=== PATIENT | female | born 1980 | race Caucasian/White ===

== ENCOUNTER 2018-10-02 00:09 | Emergency (ER) | payer SELFPAY ==
[~2018-10-02] VITALS: Ht 165.1 cm; Wt 52.2 kg
[2018-10-02 00:13] VITALS: BP 127/50
--- NOTE | 2018-10-02 00:17 | NUR ---
PT AMBULATED TO LOBBY WITH VSS.
--- NOTE | 2018-10-02 03:00 | NUR ---
PT AMBULATED TO BED 12 WITH VSS.
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
[2018-10-02] MEDS ORDERED: IBUPROFEN 800 MG TAB PO ONE (03:55)
--- NOTE | 2018-10-02 04:02 | NUR ---
Patient discharged with v/s stable. Written and verbal after care instructions given and explained. Patient alert, oriented and verbalized understanding of instructions. Ambulatory with steady gait. All questions addressed prior to discharge. ID band removed. Patient advised to follow up with PMD. Rx of MOTRIN, ROBAXIN WAS given. Patient educated on indication of medication including possible reaction and side effects. Opportunity to ask questions provided and answered.
--- NOTE | 2018-10-02 04:02 | NUR ---
PT WAS GIVEN A HOMELESS PACKET AND SIGNED A HOMELESS WAIVER. PT SIGNED THE WAIVER
[2018-10-02 04:22] VITALS: BP 127/50
== END 2018-10-02 04:02 | disposition home or self-care (01) ==
LOC: MED 00:09
DX: S46.911A Strain of unspecified muscle, fascia and tendon at shoulder and upper arm level, right arm, initial encounter (principal); V86.99XA Unspecified occupant of other special all-terrain or other off-road motor vehicle injured in nontraffic accident, initial encounter; Y93.89 Activity, other specified; Y92.89 Other specified places as the place of occurrence of the external cause; Y99.8 Other external cause status
CPT/HCPCS: 73030; 99283